=== PATIENT | male | born 1985 | race African-American/Black ===

== ENCOUNTER 2016-08-25 21:13 | Inpatient (IN) | payer MEDICARE, MEDICAID ==
[~2016-08-25] VITALS: Ht 177.8 cm; Wt 78.7 kg
[~2016-08-25 21:13] MED LIST: MAGOX PO; QUET300T2 PO; TRAZ-147 PO
[2016-08-26 01:50] VITALS: BP 130/87
[2016-08-26] MEDS ORDERED: QUEtiapine FUMARATE 100 MG TABLET PO PRN (02:45)
[2016-08-26] MEDS ORDERED: ZOLPIDEM TARTRATE 10 MG TABLET PO PRN (02:45)
[2016-08-26] MEDS ORDERED: LORazepam 2 MG TABLET PO PRN (02:45)
[2016-08-26 03:09] VITALS: BP 118/81
[2016-08-26 08:10] VITALS: BP 112/74
[2016-08-26 09:03] LABS: CHOL/HDL RATIO 1.5 (4.2-7.3); THYROID STIMULATING HORMONE 0.56 uIU/mL (0.36-3.74)
[2016-08-26 09:10] LABS: HEMOGLOBIN A1C 5.6 % (4.5-6.2)
[2016-08-26] MEDS ORDERED: PETROLATUM,WHITE 71 GM JELLY TP PRN (09:30)
[2016-08-26] MEDS ORDERED: ONDANSETRON HCL 4 MG TABLET PO PRN (09:30)
[2016-08-26] MEDS ORDERED: BENZOCAINE/MENTHOL LOZENGE MM PRN (09:30)
[2016-08-26] MEDS ORDERED: LOPERAMIDE HCL 2 MG CAPSULE PO PRN (09:30)
[2016-08-26] MEDS ORDERED: IBUPROFEN 600 MG TABLET PO PRN (09:30)
[2016-08-26] MEDS ORDERED: ALBUTEROL SULFATE HFA 90 MCG/PUFF 8 GM INHALER IH PRN (09:30)
[2016-08-26] MEDS ORDERED: MAG HYDROX/AL HYDROX/SIMETH ES 30 ML SUSPENSION UDCUP PO PRN (09:30)
[2016-08-26] MEDS ORDERED: BACITRACIN 28.4 GM OINTMENT TP PRN (09:30)
[2016-08-26] MEDS ORDERED: MAGNESIUM HYDROXIDE SUSPENSION 30 ML UDCUP PO PRN (09:30)
[2016-08-26] MEDS ORDERED: CloNIDine HCL 0.1 MG TABLET PO PRN (09:30)
[2016-08-26] MEDS ORDERED: ACETAMINOPHEN 325 MG TABLET PO PRN (09:30)
[2016-08-26] MEDS: TraZODone HCL 50 MG TABLET PO SCH (20:35)
[2016-08-26] MEDS: QUEtiapine FUMARATE 300 MG TABLET PO SCH (20:35)
[2016-08-27 08:17] VITALS: BP 133/74
[2016-08-27] MEDS: TraZODone HCL 50 MG TABLET PO SCH (20:41)
[2016-08-27] MEDS: QUEtiapine FUMARATE 300 MG TABLET PO SCH (20:41)
[2016-08-28 16:14] VITALS: BP 104/63
[2016-08-28] MEDS: TraZODone HCL 50 MG TABLET PO SCH (20:34)
[2016-08-28] MEDS: QUEtiapine FUMARATE 300 MG TABLET PO SCH (20:34)
[2016-08-29 16:10] VITALS: BP 107/69
[2016-08-29] MEDS: TraZODone HCL 50 MG TABLET PO SCH (20:35)
[2016-08-29] MEDS: QUEtiapine FUMARATE 300 MG TABLET PO SCH (20:35)
[2016-08-30 01:53] VITALS: BP 108/61
[2016-08-30 16:17] VITALS: BP 116/73
[2016-08-30] MEDS: QUEtiapine FUMARATE 300 MG TABLET PO SCH (20:31)
[2016-08-30] MEDS: TraZODone HCL 50 MG TABLET PO SCH (20:32)
[2016-08-31 05:58] VITALS: BP 110/65
[2016-08-31 16:14] VITALS: BP 108/64
[2016-08-31] MEDS: QUEtiapine FUMARATE 300 MG TABLET PO SCH (20:12)
[2016-08-31] MEDS: TraZODone HCL 50 MG TABLET PO SCH (20:12)
[2016-09-01 16:11] VITALS: BP 121/87
[2016-09-01] MEDS: TraZODone HCL 50 MG TABLET PO SCH (20:34)
[2016-09-01] MEDS: QUEtiapine FUMARATE 300 MG TABLET PO SCH (20:35)
[2016-09-02 16:05] VITALS: BP 127/85
[2016-09-02] MEDS: QUEtiapine FUMARATE 300 MG TABLET PO SCH (20:42)
[2016-09-02] MEDS: TraZODone HCL 50 MG TABLET PO SCH (20:42)
[2016-09-03 08:14] VITALS: BP 121/74
[2016-09-03 16:12] VITALS: BP 121/76
[2016-09-03] MEDS: QUEtiapine FUMARATE 300 MG TABLET PO SCH (21:16)
[2016-09-03] MEDS: TraZODone HCL 50 MG TABLET PO SCH (21:16)
[2016-09-04 02:40] VITALS: BP 109/79
[2016-09-04 08:11] VITALS: BP 121/67
[2016-09-04 16:21] VITALS: BP 128/72
[2016-09-04] MEDS: TraZODone HCL 50 MG TABLET PO SCH (20:53)
[2016-09-04] MEDS: QUEtiapine FUMARATE 300 MG TABLET PO SCH (20:53)
== END 2016-09-05 13:30 | disposition home or self-care (01) | DRG 885 ==
LOC: B2X 08-26 02:15
DX: F31.5 Bipolar disorder, current episode depressed, severe, with psychotic features (principal); R45.851 Suicidal ideations; I10 Essential (primary) hypertension; K21.9 Gastro-esophageal reflux disease without esophagitis; G40.909 Epilepsy, unspecified, not intractable, without status epilepticus; F12.90 Cannabis use, unspecified, uncomplicated; G47.00 Insomnia, unspecified; F90.9 Attention-deficit hyperactivity disorder, unspecified type; F17.200 Nicotine dependence, unspecified, uncomplicated; Z59.0 Homelessness; Z91.19 Patient's noncompliance with other medical treatment and regimen; Z79.899 Other long term (current) drug therapy; Z91.5 Personal history of self-harm; Z72.89 Other problems related to lifestyle; Z71.51 Drug abuse counseling and surveillance of drug abuser; Z71.6 Tobacco abuse counseling; Z71.41 Alcohol abuse counseling and surveillance of alcoholic
CPT/HCPCS: 83036; 84439; 84443

== ENCOUNTER 2016-09-26 16:51 | Inpatient (IN) | payer MEDICARE, MEDICAID ==
[~2016-09-26] VITALS: Ht 177.8 cm; Wt 81.1 kg
[~2016-09-26 16:51] MED LIST changes: -MAGOX PO
[2016-09-26] MEDS ORDERED: ZOLPIDEM TARTRATE 10 MG TABLET PO PRN (17:30)
[2016-09-26] MEDS ORDERED: HALOPERIDOL 5 MG TABLET PO PRN (17:30)
[2016-09-26 17:35] VITALS: BP 122/63
[2016-09-26] MEDS: QUEtiapine FUMARATE 300 MG TABLET PO SCH (20:42)
[2016-09-26] MEDS: TraZODone HCL 50 MG TABLET PO SCH (20:42)
[2016-09-27 02:03] VITALS: BP 123/69
[2016-09-27 02:05] VITALS: BP 123/69
[2016-09-27 08:10] VITALS: BP 121/74
[2016-09-27] MEDS ORDERED: ACETAMINOPHEN 325 MG TABLET PO PRN (09:45)
[2016-09-27] MEDS ORDERED: BACITRACIN 28.4 GM OINTMENT TP PRN (09:45)
[2016-09-27] MEDS ORDERED: ONDANSETRON HCL 4 MG TABLET PO PRN (09:45)
[2016-09-27] MEDS ORDERED: MAGNESIUM HYDROXIDE SUSPENSION 30 ML UDCUP PO PRN (09:45)
[2016-09-27] MEDS ORDERED: PETROLATUM,WHITE 71 GM JELLY TP PRN (09:45)
[2016-09-27] MEDS ORDERED: LOPERAMIDE HCL 2 MG CAPSULE PO PRN (09:45)
[2016-09-27] MEDS ORDERED: IBUPROFEN 600 MG TABLET PO PRN (09:45)
[2016-09-27] MEDS ORDERED: ALBUTEROL SULFATE HFA 90 MCG/PUFF 8 GM INHALER IH PRN (09:45)
[2016-09-27] MEDS ORDERED: CloNIDine HCL 0.1 MG TABLET PO PRN (09:45)
[2016-09-27] MEDS ORDERED: MAG HYDROX/AL HYDROX/SIMETH ES 30 ML SUSPENSION UDCUP PO PRN (09:45)
[2016-09-27] MEDS ORDERED: BENZOCAINE/MENTHOL LOZENGE MM PRN (09:45)
[2016-09-27 16:13] VITALS: BP 121/68
[2016-09-27] MEDS: TraZODone HCL 50 MG TABLET PO SCH (20:40)
[2016-09-27] MEDS: QUEtiapine FUMARATE 300 MG TABLET PO SCH (20:40)
[2016-09-28 02:28] VITALS: BP 120/69
[2016-09-28 16:17] VITALS: BP 116/86
[2016-09-28] MEDS: TraZODone HCL 50 MG TABLET PO SCH (20:34)
[2016-09-28] MEDS: QUEtiapine FUMARATE 300 MG TABLET PO SCH (20:34)
[2016-09-29 16:14] VITALS: BP 114/65
[2016-09-29] MEDS: TraZODone HCL 50 MG TABLET PO SCH (20:41)
[2016-09-29] MEDS: QUEtiapine FUMARATE 300 MG TABLET PO SCH (20:41)
[2016-09-30 12:13] VITALS: BP 118/73
[2016-09-30] MEDS: LORazepam 2 MG TABLET PO PRN (12:40)
[2016-09-30 17:16] VITALS: BP 112/61
[2016-09-30] MEDS: TraZODone HCL 50 MG TABLET PO SCH (20:40)
[2016-09-30] MEDS: QUEtiapine FUMARATE 300 MG TABLET PO SCH (20:40)
[2016-10-01] MEDS: LORazepam 2 MG TABLET PO PRN ×2 (13:53→19:44)
[2016-10-01 16:15] VITALS: BP 119/66
[2016-10-01] MEDS: TraZODone HCL 50 MG TABLET PO SCH (20:39)
[2016-10-01] MEDS: QUEtiapine FUMARATE 300 MG TABLET PO SCH (20:39)
[2016-10-02] MEDS: LORazepam 2 MG TABLET PO PRN ×2 (11:49→17:42)
[2016-10-02 16:34] VITALS: BP 108/89
[2016-10-02] MEDS: QUEtiapine FUMARATE 300 MG TABLET PO SCH (20:41)
[2016-10-02] MEDS: TraZODone HCL 50 MG TABLET PO SCH (20:41)
[2016-10-03] MEDS: LORazepam 2 MG TABLET PO PRN ×2 (09:04→16:28)
[2016-10-03 16:23] VITALS: BP 124/67
[2016-10-03] MEDS: QUEtiapine FUMARATE 300 MG TABLET PO SCH (20:35)
[2016-10-03] MEDS: TraZODone HCL 50 MG TABLET PO SCH (20:35)
[2016-10-04] MEDS: LORazepam 2 MG TABLET PO PRN (08:22)
[2016-10-04 08:42] VITALS: BP 119/75
== END 2016-10-04 16:05 | disposition home or self-care (01) | DRG 885 ==
LOC: B2X 17:21 → EDSTATUS 17:29
DX: F31.5 Bipolar disorder, current episode depressed, severe, with psychotic features (principal); R45.851 Suicidal ideations; F19.20 Other psychoactive substance dependence, uncomplicated; G40.909 Epilepsy, unspecified, not intractable, without status epilepticus; I10 Essential (primary) hypertension; F12.90 Cannabis use, unspecified, uncomplicated; G47.00 Insomnia, unspecified; K59.00 Constipation, unspecified; F17.200 Nicotine dependence, unspecified, uncomplicated; K21.9 Gastro-esophageal reflux disease without esophagitis; Z91.5 Personal history of self-harm; Z59.0 Homelessness; Z56.0 Unemployment, unspecified; Z71.6 Tobacco abuse counseling; Z71.51 Drug abuse counseling and surveillance of drug abuser; Z71.41 Alcohol abuse counseling and surveillance of alcoholic; Z72.89 Other problems related to lifestyle; Z91.19 Patient's noncompliance with other medical treatment and regimen; Z79.899 Other long term (current) drug therapy; Z81.8 Family history of other mental and behavioral disorders
CPT/HCPCS: 87081